=== PATIENT | male | born 1965 | race Two or more races ===

== ENCOUNTER 2017-03-06 13:03 | Observation (INO) | payer OTHER ==
[~2017-03-06] VITALS: Ht 170.2 cm; Wt 69.4 kg
--- NOTE | ~2017-03-06 | CR72 ---
[facility] A Service of [facility] RADIOLOGY TEXT RESULTS PATIENT: LEON COLON LOCATION: [facility] 567-01 : 66 UNIT #: [id number] AGE: [address]: Gunner Farnsworth MD SEX: M ORDER DR: [id number] [facility] [address] [facility]. [place], [place] [address] [id number] I MR#: [id number] Acc #: [id number] NAME: LEON COLON : 1965 SEX: M STUDY DATE/TIME: 03/06/2017 13:43 UNIT: [facility] ROOM: [facility] STUDY DESCRIPTION: CR Chest Single View Portable Attending Physician: Mulu Trimble M.D. Ordering Physician: Alvin Fraser M.D. Primary Care Physician: Primary Care Physician No MEDICAL IMAGING REPORT This report is preliminary unless electronic signature is present EXAM Chest portable, 03/06/2017 1343 hours CLINCIAL HISTORY 52-year-old man with 2-week history of chest pain and shortness of air. COMPARISON None. FINDINGS Portable upright chest demonstrates normal cardiac, mediastinal, hilar and aortic contours. The lung volumes are slightly low. There is horizontal linear density in the left midlung and left lung base, likely scar. There is blunting of the left costophrenic sulcus which could represent pleural thickening or A small pleural effusion. IMPRESSION 1. There is horizontal linear density in the left midlung and left lung base consistent with atelectasis or scar. There is blunting of the left costophrenic sulcus which could represent a small left effusion or pleural thickening. No prior chest film for comparison. 2. Heart size is normal. Aortic contours are normal and the right lung is clear. Dictated by... Fartun Kern M.D. THIS IS AN ELECTRONICALLY VERIFIED REPORT Fartun Kern M.D. at 03/07/2017 9:25 AM CORY/eduardo [facility] A Service of [facility] RADIOLOGY TEXT RESULTS PATIENT: LEON COLON LOCATION: [facility] 567-01 : 66 UNIT #: [id number] AGE: [address]: Gunner Farnsworth MD SEX: M ORDER DR: TD: 03/06/2017 23:22 JOB #: [id number] MEDICAL IMAGING REPORT Page 1 of 1 COPY
--- NOTE | ~2017-03-06 | DS ---
Unit #: [id number] #: [id number] Patient: LEON COLON [id number] [address] [address] [id number] I MR#: [id number] NAME: LEON COLON ROOM: 56 Age: 52 Sex: M Admission Date: 03/06/2017 : 1965 Discharge Date: 03/07/2017 Attending Physician: Gunner Farnsworth M.D. Primary Care Physician: No Primary Care Physician DISCHARGE SUMMARY ADDENDUM DISCHARGE MEDICATIONS The patient's discharge medications are as follows: 1. Aspirin 81 mg p.o. daily. 2. Metformin 500 mg p.o. b.i.d. 3. NPH insulin 12 units subcu. q.12 hours. Dictated by... Gunner Farnsworth M.D. AUGUSTA/reji TD: 03/08/2017 11:45 JOB #: [id number] DISCHARGE SUMMARY Page 1 of 1 X Gunner Farnsworth MD X DISCHARGE SUMMARY
--- NOTE | ~2017-03-06 | HP ---
Unit #: [id number] #: [id number] Patient: LEON COLON [id number] [facility] [address] [facility]. [place], [place] [address] [id number] I MR#: [id number] NAME: LEON COLON ROOM: 47692 Age: 52 Sex: M Admission Date: 03/06/2017 : 1965 Attending Physician: Mulu Trimble M.D. Primary Care Physician: No Primary Care Physician HISTORY AND PHYSICAL CHIEF COMPLAINT Chest pain. HISTORY OF PRESENT ILLNESS The patient is a 52-year-old male with no significant past medical history who presented to the emergency department for evaluation of the above. The patient states that he has had a 2-week history of intermittent chest pain. The pain is in the left upper chest. He describes it as "squeezing." It does not radiate. It typically occurs at rest and resolves spontaneously. He states that he lasts about 5 minutes. He denies any shortness of breath, diaphoresis or nausea in association with the pain. He has never had a stress test, never had a cardiac catheterization, never seen a global mobility specialist. [facility] and was sent to the emergency department for further evaluation. In the emergency department EKG was done and showed normal sinus rhythm with a rate of 63 beats per minute. Initial cardiac enzymes are negative. Laboratory notable for glucose of 531 with CO2 of 29, anion gap of 5. He was given 324 mg of aspirin, as well as one liter of normal saline, 8 units of regular insulin. He is being admitted to [facility] for evaluation and further treatment. PAST MEDICAL HISTORY The patient was hospitalized in 2005 for appendectomy. SOCIAL HISTORY The patient lives alone. He works as a aircraft structure mechanic. He denies tobacco or alcohol use. FAMILY HISTORY Notable for his mother having diabetes. ALLERGIES No known allergies. HOME MEDICATIONS None. REVIEW OF SYSTEMS A complete review of systems is negative except as indicated in the HPI. The patient states that he has had increased thirst for the past month. He denies polyuria. He states that he lost weight several years ago but has maintained his weight over the past year. He denies any fever. No cough Unit #: [id number] #: [id number] Patient: LUNA COLONEEDHAR or cold symptoms. PHYSICAL EXAMINATION VITAL SIGNS: Temperature is 98.2, pulse 65, respirations 16, blood pressure 132/84, oxygen saturation 98% on room air. GENERAL: The patient is a very pleasant male who is ambulating about the room. HEENT: The head is atraumatic. Mucous membranes are moist. NECK: Supple. Trachea is midline. CARDIOVASCULAR: Regular rate and rhythm. RESPIRATORY: Lungs are clear to auscultation bilaterally with no increased work of breathing. ABDOMEN: Soft, nontender with bowel sounds present in all 4 quadrants. EXTREMITIES: Extremities are nontender with no pedal edema. NEUROLOGIC: The patient is awake and alert. He follows commands. PSYCHIATRIC: Mood and affect are normal. The patient is cooperative. SKIN: Skin of examined areas is warm and dry. DIAGNOSTIC TESTS CARDIOVASCULAR: EKG shows normal sinus rhythm with a rate of 63 beats per minute. LABORATORY: Complete blood count is completely normal. Troponin is less than 0.05. Comprehensive metabolic panel notable for glucose of 531. Sodium is 133 but corrects when accounting for glucose. Chloride is 98, CO2 29, anion gap 5. Urinalysis notable for greater than 1,000 glucose. ASSESSMENT 1. The patient is a 52-year-old male with chest pain. EKG and cardiac enzymes are negative. He has never had a cardiac workup. He does have risk factors of age and diabetes. 2. New diabetes. The patient's initial glucose was 531. He received 1 liters of normal saline, as well as 8 units of regular insulin. PLAN 1. Admit for observation to intermediate level. 2. Healthy heart, consistent carb diet. 3. NPO after midnight for possible stress test. 4. One liter of normal saline bolus now, followed by normal saline at 125 mL an hour. 5. Hemoglobin A1C. 6. TSH. 7. Low-dose sliding scale insulin with Accu-Cheks. 8. The patient will likely be discharged home on metformin. 9. Fasting lipid panel. 10. Serial cardiac enzymes. 11. Consult Dr. Quinones regarding chest pain. 12. SCDs for DVT prophylaxis. 13. Repeat labs in the morning. 14. Additional workup and consultants based on above. Dictated by Mulu Trimble M.D. ROSELIA/jose Unit #: [id number] #: [id number] Patient: LEON COLON TD: 03/06/2017 15:59 JOB #: [id number] HISTORY AND PHYSICAL Page 1 of 1 X Mulu Trimble MD HISTORY AND PHYSICAL
--- NOTE | ~2017-03-06 | TH ---
Unit #: [id number] #: [id number] Patient: LEON COLON [id number] [address] [address] [id number] I MR#: [id number] NAME: LEON COLON : 1965 SEX: M STUDY DATE/TIME: UNIT: [facility] ROOM: 567 STUDY DESCRIPTION: Nuclear Study/ECG Stress Attending Physician: Gunner Farnsworth M.D. Primary Care Physician: No Primary Care Physician CARDIOLOGY REPORT EXAM Combined EKG and Nuclear Part of the Test DESCRIPTION Patient's baseline heart rate is 52 beats/minute, blood pressure is 137/89. Patient exercised on standard Mario protocol for 8 minutes 18 seconds achieving a peak heart rate of 148 beats/minute which is 87% of predicted heart rate. Peak blood pressure 150/90. Patient's baseline EKG showing normal sinus rhythm, normal EKG. During exercise recovery, no further ST and T changes. Patient now received 11.20 mCi of Cardiolite at rest and 35.4 mCi of Cardiolite during stress. Both sets of images were compared. Patient showed fairly uniform uptake of radiotracer. No defect was noted. Patient also had gated SPECT scan done which showed normal LV size and function. No wall motion abnormality detected. Ejection fraction is 57%. INTERPRETATION 1. Good exercise tolerance. 2. Appropriate hemodynamic results. 3. EKG part of test negative for stress-induced ischemia. 4. Nuclear part of the test negative for myocardial ischemia. 5. Gated SPECT scan shows normal LV size and function. Dictated by... Nakita Torres/lori TD: 03/08/2017 09:18 JOB #: [id number] Unit #: [id number] #: [id number] Patient: LEON COLON CARDIOLOGY REPORT Page 1 of 1 X Ashok Mariano MD CARDIOLOGY REPORT
--- NOTE | ~2017-03-06 | DS ---
Unit #: [id number] #: [id number] Patient: LEON COLON [id number] [address] [address] [id number] I MR#: [id number] NAME: LEON COLON ROOM: 567 Age: 52 Sex: M Admission Date: 03/06/2017 : 1965 Discharge Date: 03/07/2017 Attending Physician: Gunner Farnsworth M.D. Primary Care Physician: No Primary Care Physician DISCHARGE SUMMARY PRIMARY DIAGNOSIS Chest pain, noncardiac. SECONDARY DIAGNOSES 1. Diabetes mellitus type 2, uncontrolled, new diagnosis. 2. Dyslipidemia. HOSPITAL COURSE The patient was placed in the hospital with complaints of chest pain. They were typical, and EKG and cardiology consultation were obtained. The patient underwent serial troponins, which were negative, and underwent cardiac stress testing, which was negative. Cardiology recommended aggressive risk factor modification, which is primarily going to involve treating his diabetes. At this time his blood pressures are well controlled, but his LDL is moderately elevated at 146. He was given diabetic diet education and will be started on treatment for his hyperglycemia. Ultimately, the patient may also benefit from low-dose lisinopril, as well as statin, if he is able to afford these and as he gets used to being on a daily medication regimen. At this time I did not want to overwhelm the patient by starting too many medications in order to try to ensure compliance and followup. The patient is uninsured and has not made a habit of following up with physicians in the past. A two-D echo was also done during this hospitalization, although I do not have the results. Please see that report for details. The patient was cleared by cardiology for discharge. DISCHARGE DISPOSITION To home. DISCHARGE STATUS Stable. DISCHARGE DIET Diabetic diet. DISCHARGE ACTIVITY Ad antonio. DISCHARGE FOLLOW-UP 1. [facility] 23 at 9 a.m. 2. With the PCP of his choice in 3-10 weeks. Unit #: [id number] #: [id number] Patient: LEON COLON DISCHARGE MEDICATIONS Will be dictated as an addendum. Dictated by... Gunner Farnsworth M.D. AUGUSTA/jose TD: 03/08/2017 11:31 JOB #: [id number] DISCHARGE SUMMARY Page 1 of 1 X Gunner Farnsworth MD X DISCHARGE SUMMARY
--- NOTE | ~2017-03-06 | EKG ---
PATIENT: LEON COLON UNIT #: [id number] Ventricular Rate: 63 BPM Atrial Rate: 63 BPM P-R Interval: 148 ms QRS Duration: 106 ms Q-T Interval: 380 ms QTC Calculation(Bezet): 388 ms P [place]: 65 degrees Calculated R [place]: -27 degrees Calculated T [place]: 14 degrees Diagnosis Line: Normal sinus rhythm Diagnosis Line: Possible Left atrial enlargement Diagnosis Line: Borderline ECG Diagnosis Line: No previous ECGs available Diagnosis Line: Confirmed by PAKO BOSTON MD ([id number]) on Diagnosis Line: 03/06/2017 1:30:24 PM INTERPRETING MD: LUDY GOLD
--- NOTE | ~2017-03-06 | CO ---
Unit #: [id number] #: [id number] Patient: LEON COLON [id number] [address] [address] [id number] I MR#: [id number] NAME: LEON COLON ROOM: 72045 Age: 52 Sex: M Admission Date: 03/06/2017 : 1965 Attending Physician: Mulu Trimble M.D. Primary Care Physician: No Primary Care Physician Requesting Physician: Mulu Trimble M.D. CONSULTATION REPORT REASON FOR CONSULTATION Chest pain HISTORY OF PRESENT ILLNESS A 52-year-old Turk[place] gentleman with a past medical history of appendicitis status post appendectomy comes in with a two week history of chest discomfort. Patient states chest discomfort is left-sided with no radiation. He denies any associated shortness of breath, orthopnea and PND, pedal edema or syncope. He does mention on and off palpitations which last less than a minute and resolve on their own. He denies any exertional feature of the chest discomfort. He does mention feels like burning but denies any reflux or GERD-like symptoms. 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 Today in the ER during his workup his sugars have been noted to be 531, not a known diabetic from prior, likely is a diabetic. Hemoglobin A1C is pending. PAST MEDICAL HISTORY No history of hypertension or diabetes. PAST SURGICAL HISTORY Appendicitis status post appendectomy in 2005. FAMILY HISTORY Denies any family history of premature coronary artery bypass or sudden cardiac . OUTPATIENT MEDICATIONS None. SOCIAL HISTORY Denies any smoking, alcohol or drug abuse; he has been living in the [facility] for over 13 years, works as a fixed wing aircraft flight mechanic. REVIEW OF SYSTEMS All 14-point review of systems is negative, rest as per HPI. GENERAL: No weight loss or weight gain. No fever. HEENT: No headache. No visual disturbances. NEUROLOGIC: No sensory or motor changes. GASTROINTESTINAL: No nausea, vomiting or diarrhea. RESPIRATORY: No cough or shortness of breath. DERMATOLOGIC: No swelling. No rash or ulcers. Unit #: [id number] #: [id number] Patient: LEON COLON PHYSICAL EXAMINATION VITAL SIGNS: The patient's blood pressure is 120/86, heart rate is 68 beats per minute, afebrile, respiratory rate of 16. GENERAL: Not in acute distress. HEENT: PERRLA. NECK: No thyromegaly. No JVD. CHEST: Normal vesicular breath sounds heard bilaterally. HEART: S1 and S2 are heard. There is no murmur, rub or clicks heard. EXTREMITIES: Distal pulses are present. Warm. No edema. ABDOMEN: Soft, nontender, bowel sounds are present. PSYCHIATRIC: Mood and affect normal. NEUROLOGICALALLY: Alert and oriented x3. Speech normal. Motor intact. SKIN: No rash. No ulcer. Intact. MUSCULOSKELETAL: No deformities. No scoliosis. DIAGNOSTIC STUDIES LABORATORY: Glucose is 531, BUN of 17, creatinine 1, sodium 133, potassium 4.4, chloride of 98, bicarb of 29, calcium of 9.2, total protein 6.7, albumin of 4.3, indirect bilirubin 1.5, AST 20, ALT 25, alkaline phosphatase 53, total cholesterol 222, triglycerides 118, LDL of 146, HDL of 52, TSH of 1.16. Point of care troponin less than 0.05 and a CK-MB of 1.6. Hemoglobin of 14.2, platelet of 187, white count of 5.6. Urinalysis positive for glucose, negative for protein. Anion gap of 6. CARDIOVASCULAR: EKG shows a normal sinus rhythm with no significant Q waves. Normal ST segments. Normal RI and QRS intervals. Ventricular rate of 63 beats per minute. ASSESSMENT AND PLAN A 52-year-old Turk[place] gentleman with elevated blood sugars, likely diabetic, comes with chest discomfort. 1. Chest discomfort, atypical in presentation though patient is at intermediate risk for obstructive coronary artery disease. Patient will be scheduled to undergo a stress test, also a 2D echocardiogram to look for structural abnormalities. Aggressive risk factor modification. 2. Hyperlipidemia: Patient should be started on Lipitor 40 mg p.o. daily. The patient is a diabetic with an LDL of 144. 3. Diabetes: Patient would benefit from low dose of lisinopril. Hemoglobin A1C is still pending. 4. Followup after echocardiogram and stress testing. Dictated by... Ene Mcdaniel M.D. RESHMA/dimple TD: 03/06/2017 17:50 JOB #: [id number] Unit #: [id number] #: [id number] Patient: DARLENELEON CONSULTATION REPORT Page 1 of 1 X ENE MCDANIEL MD CONSULTATION REPORT
--- NOTE | ~2017-03-06 | ST ---
Unit #: [id number] #: [id number] Patient: LEON COLON [id number] [address] [address] [id number] I MR#: [id number] NAME: LEON COLON : 1965 SEX: M STUDY DATE/TIME: UNIT: [facility] ROOM: 7 STUDY DESCRIPTION: Stress Test Attending Physician: Gunner Farnsworth M.D. Primary Care Physician: No Primary Care Physician CARDIOLOGY REPORT EXAM EKG Stress RESULTS Please see Nuclear Study for results of EKG Stress Test. Dictated by... Nakita Torres/lori TD: 03/08/2017 09:26 JOB #: [id number] CARDIOLOGY REPORT Page 1 of 1 X Ashok Mariano MD CARDIOLOGY REPORT
[2017-03-06 13:44] LABS: BASOPHIL% 0.8 % (0-2.5); EOSINOPHIL# 0.1 X10e3 (0-0.7); EOSINOPHIL% 1.6 % (0.0-7.0); HEMATOCRIT 41.5 % (38.0-50.0); HEMOGLOBIN 14.2 gm/dL (13.0-16.0); LYMPHOCYTE# 1.9 X10e3 (1.0-3.5); MEAN CELL VOLUME 83.6 FL (83-96); MEAN CORPUSCULAR HEMOGLOBIN 28.5 PG (28-34); MEAN CORPUSCULAR HGB CONC 34.1 g/dL (30-36); MEAN PLATELET VOLUME 7.8 FL (6.5-11.5); MONOCYTE# 0.4 X10e3 (0-1.0); MONOCYTE% 7.8 % (3.0-12.0); NEUTROPHIL# 3.2 X10e3 (1.5-7.1); NEUTROPHIL% 56.8 % (40-75); PLATELET COUNT 187 X10e3 (140-420); RED BLOOD COUNT 4.97 X10e (3.90-5.60); RED CELL DISTRIBUTION WIDTH 12.8 % (11.0-15.5); WHITE BLOOD COUNT 5.6 X10e3 (4.0-10.5)
[2017-03-06 13:46] LABS: DIFF IND NO
[2017-03-06 13:57] LABS: POC - CKMB 1.6 ng/mL (0.0-7.9); POC - TROPONIN <0.05 ng/mL (<=0.05)
[2017-03-06 14:11] LABS: ALBUMIN SERUM 4.3 g/dL (3.5-5.0); BILIRUBIN, DIRECT 0.1 mg/dL (0.0-0.2); BILIRUBIN,INDIRECT 1.5 mg/dL (0.0-0.9); BILIRUBIN,TOTAL 1.6 mg/dL (0.2-2.0); CALCIUM SERUM 9.2 mg/dL (8.4-10.2); GLOM FILT RATE Estimated 86.8 mL/min (>60); POTASSIUM 4.4 mmol/L (3.5-5.1); PROTEIN TOTAL SERUM 6.7 g/dL (6.0-8.3)
[2017-03-06 14:56] LABS: URINE SOURCE CLEAN CATCH
[2017-03-06 15:01] LABS: URINE APPEARANCE CLEAR; URINE BILIRUBIN NEG (NEG); URINE BLOOD NEG (NEG); URINE COLOR YELLOW; URINE GLUCOSE >1000 MG/DL (NEG); URINE KETONE NEG (NEG); URINE LEUKOCYTE ESTERASE NEG (NEG); URINE NITRATE NEG (NEG); URINE PH 7.5 (5-8); URINE PROTEIN NEG (NEG); URINE SPECIFIC GRAVITY 1.032 (1.003-1.035); URINE UROBILINOGEN 0.2 MG/DL (NEG)
[2017-03-06 15:06] LABS: CULTURE INDICATED? NO
[2017-03-06] MEDS ORDERED: NO MEDICATIONS (15:41)
[2017-03-06 16:37] LABS: CHOLESTEROL 222 mg/dL (0-200); HDL CHOLESTEROL 52 mg/dL (29-75); LDL/HDL RATIO 3 RATIO (0-4); TRIGLYCERIDES 118 mg/dL (10-160)
[2017-03-06 16:53] LABS: LDL CHOLESTEROL 146 mg/dL (-130)
[2017-03-06 22:03] LABS: %MB 1.6 % (0.0-4.0); MB 1.7 ng/ml
[2017-03-07 03:40] LABS: BASOPHIL% 0.6 % (0-2.5); DIFF IND NO; EOSINOPHIL# 0.1 X10e3 (0-0.7); EOSINOPHIL% 1.9 % (0.0-7.0); HEMOGLOBIN 13.2 gm/dL (13.0-16.0); LYMPHOCYTE# 2.8 X10e3 (1.0-3.5); LYMPHOCYTE% 36.9 % (17.0-45.0); MEAN CORPUSCULAR HEMOGLOBIN 28.8 PG (28-34); MEAN CORPUSCULAR HGB CONC 34.6 g/dL (30-36); MEAN PLATELET VOLUME 7.9 FL (6.5-11.5); MONOCYTE# 0.7 X10e3 (0-1.0); MONOCYTE% 9.1 % (3.0-12.0); NEUTROPHIL# 3.9 X10e3 (1.5-7.1); NEUTROPHIL% 51.5 % (40-75); PLATELET COUNT 166 X10e3 (140-420); RED BLOOD COUNT 4.58 X10e (3.90-5.60); RED CELL DISTRIBUTION WIDTH 12.9 % (11.0-15.5); WHITE BLOOD COUNT 7.6 X10e3 (4.0-10.5)
[2017-03-07 04:05] LABS: ALBUMIN SERUM 3.5 g/dL (3.5-5.0); BILIRUBIN,TOTAL 1.7 mg/dL (0.2-2.0); BUN/CREATININE RATIO 17.5; CALCIUM SERUM 8.4 mg/dL (8.4-10.2); CREATININE SERUM 0.8 mg/dL (0.6-1.4); GLOM FILT RATE Estimated 103.5 mL/min (>60); POTASSIUM 3.8 mmol/L (3.5-5.1); PROTEIN TOTAL SERUM 5.8 g/dL (6.0-8.3)
[2017-03-07 04:34] LABS: %MB 1.3 % (0.0-4.0); MB 1.3 ng/ml
[2017-03-07] MEDS ORDERED: ASPIRIN EC81 M1 PO (15:44)
[2017-03-07] MEDS ORDERED: GLUCOPHAGE500 MG PO (15:44)
[2017-03-07] MEDS ORDERED: HUMULIN N100 UNIT/2 SUBQ (15:45)
== END 2017-03-07 18:34 | disposition home or self-care (01) | DRG 313 ==
LOC: CED 13:03 → CEDOF 15:40 → CED 15:55 → CEDOF 15:55 → C5C 20:28
PROVIDERS: Emergency Medicine; Family Medicine
DX: R07.89 Other chest pain (principal); E11.65 Type 2 diabetes mellitus with hyperglycemia; E78.5 Hyperlipidemia, unspecified; Z79.82 Long term (current) use of aspirin; Z79.4 Long term (current) use of insulin; Z90.49 Acquired absence of other specified parts of digestive tract
CPT/HCPCS: 36415; 71010; 78452; 80048; 80053; 80061; 80076; 81003; 82550; 82553; 82947; 83036; 84443; 84484; 85025; 93005; 93017; 93306; 96360; 96361; 99285; A9500; G0378; J1815

== ENCOUNTER 2017-03-09 21:32 | Emergency (ER) | payer SELFPAY ==
[~2017-03-09] VITALS: Ht 170.2 cm; Wt 70.3 kg
[~2017-03-09 21:32] MED LIST: ASPIRIN EC81 M1 PO; GLUCOPHAGE500 MG PO; HUMULIN N100 UNIT/2 SUBQ; NO MEDICATIONS
[2017-03-09 23:46] LABS: URINE SOURCE CLEAN CATCH
[2017-03-09 23:54] LABS: URINE APPEARANCE CLEAR; URINE BILIRUBIN NEG (NEG); URINE BLOOD NEG (NEG); URINE COLOR YELLOW; URINE GLUCOSE >1000 MG/DL (NEG); URINE KETONE NEG (NEG); URINE LEUKOCYTE ESTERASE NEG (NEG); URINE NITRATE NEG (NEG); URINE PROTEIN NEG (NEG); URINE UROBILINOGEN 0.2 MG/DL (NEG)
[2017-03-09 23:54] LABS: BUN/CREATININE RATIO 22.85; CALCIUM SERUM 8.9 mg/dL (8.4-10.2); CREATININE SERUM 0.7 mg/dL (0.6-1.4); GLOM FILT RATE Estimated 109.3 mL/min (>60); POTASSIUM 3.7 mmol/L (3.5-5.1)
[2017-03-10 00:01] LABS: CULTURE INDICATED? NO
== END 2017-03-10 00:32 | disposition home or self-care (01) ==
LOC: CED 21:32
PROVIDERS: Emergency Medicine
DX: E11.65 Type 2 diabetes mellitus with hyperglycemia (principal); Z79.82 Long term (current) use of aspirin; Z79.84 Long term (current) use of oral hypoglycemic drugs; Z79.4 Long term (current) use of insulin
CPT/HCPCS: 36415; 80048; 81003; 82947; 96360; 99284

== ENCOUNTER → 2017-03-23 | Outpatient (CLI) | payer SELFPAY | END | disposition home or self-care (01) | LOC: CBAR 08:50 | DX: E11.649 Type 2 diabetes mellitus with hypoglycemia without coma (principal); I10 Essential (primary) hypertension; E78.5 Hyperlipidemia, unspecified | CPT/HCPCS: 82947 ==